=== PATIENT | female | born 1960 | race Caucasian/White ===

== ENCOUNTER 2017-12-20 10:25 | Day surgery (SDC) | payer BC ==
[2017-12-20] MEDS ORDERED: PROPOFOL 10 MG/ML VIAL IV ONE (10:26)
[2017-12-20] MEDS ORDERED: LIDOCAINE 2% MDV (20MG/ML) 20ML VIAL IV ONE (10:26)
--- NOTE | 2017-12-21 13:50 | Operative Note ---
DATE OF SURGERY: 12/20/2017 OPERATION: COLONOSCOPY to the cecum with cold biopsy forceps polypectomy x1 and cold snare polypectomy x1. INDICATION: Recent hospitalization with marked anemia. Patient had rectal bleeding. The cause for this was unclear. She has had a previous sigmoid colon resection for diverticular disease with complications. She received blood transfusions while hospitalized and her hemoglobin has now been stable. Colonoscopy is completed at this time for further evaluation. Her last examination was 5 years ago. ANESTHESIA: Intravenous sedation was administered by the department of anesthesiology and included Diprivan titrated to effect. PROCEDURE: Following informed consent from this alert individual including a discussion of the risks and benefits of the procedure and an opportunity for the patient to ask questions, the patient was in the left lateral decubitus position. A digital rectal examination was performed. No abnormalities were noted. Following this, the Olympus ROL223 video colonoscope was inserted into the rectum without resistance. The rectal mucosa had a normal appearance with normal folds and distensibility. The colonoscope was advanced up into the sigmoid colon where a previous resection was noted. Scattered diverticula were also seen in the sigmoid area. The colonoscope was further advanced up through the descending colon around splenic flexure across the transverse colon down the ascending colon to the cecum. Throughout the remainder of the bowel, the mucosa appeared normal, the folds were normal, and the bowel was fairly well distensible. The colon preparation was good. There was a flat 7-8 mm sessile polyp noted in the ascending colon which was removed with a combination of cold and hot snare polypectomy. The polyp was suctioned through the colonoscope into a collection trap. At the base of the cecum, there was a second diminutive 3-4 mm polyp noted which was removed with biopsy forceps. From the base of the cecum, the colonoscope was then slowly withdrawn. The colon preparation was good. No additional changes were appreciated upon withdrawal. Again diverticulosis was apparent in the sigmoid region. Previous anticoagulation site was also noted. Retroflexion in the rectum revealed very small internal hemorrhoids. The endoscope was straightened and removed. The patient tolerated the procedure well and was returned to the recovery area in stable condition. IMPRESSION: 1. A 3 mm cecal polyp removed with biopsy forceps. 2. A 7-8 mm flat polyp removed from the ascending colon with a combination of electrocautery and cold snare polypectomy. 3. Sigmoid diverticulosis. 4. Very small internal hemorrhoids. RECOMMENDATIONS: It is most likely that the patient bled from diverticular bleed although this is not absolutely clear. Further recommendations will be forthcoming pending her progress and results of pathology. Followup will be with Dr. Ervin. As always, thank you for allowing me to participate in the care of your patient. CC: INÉS ERVIN MD, FACP [facility]
== END 2017-12-20 12:45 | disposition home or self-care (01) ==
LOC: HOP 10:25
PROVIDERS: ATTEND Internal Medicine Gastroenterology
DX: Z12.11 Encounter for screening for malignant neoplasm of colon (principal); D12.2 Benign neoplasm of ascending colon; D12.0 Benign neoplasm of cecum; K57.30 Diverticulosis of large intestine without perforation or abscess without bleeding; K64.8 Other hemorrhoids; Z87.19 Personal history of other diseases of the digestive system; Z86.2 Personal history of diseases of the blood and blood-forming organs and certain disorders involving the immune mechanism; I10 Essential (primary) hypertension